=== PATIENT | female | born 1955 | race Caucasian/White ===

== ENCOUNTER → 2016-12-18 | Outpatient (CLI) | payer OTHER ==
[~2016-12-18] MED LIST: IOPAMIDOL (ISOVUE-300) 100 ML BTL IV ONE
--- NOTE | 2016-12-18 12:24 | MA ---
Screening Digital Mammogram With Tomosynthesis Clinical Indications: Routine screening. Technique: Standard digital cephalocaudal and tomosynthesis mediolateral oblique projections are obt ained. The digital images are processed by the [employer] computer aided detection system. Comparison: December 2015, November 2014, October 2013 and 2011 Breast density: C; The breast tissue is heterogeneously dense, which could obscure detection of small masses. Findings: CAD was reviewed. No suspicious findings are identified. Impression: Negative mammogram. BI-RADS 1. Recommendation: Routine screening is recommended in one year, as long as physical examination is kirill ign in this patient with moderately dense breast parenchyma. [facility] will send a result letter to the patient. Negative mammography should not preclude additional workup of a clinically suspicious finding. The patient's information is entered into a reminder system with a target due date for her next mammo gram.
== END ==
LOC: FIMAGING 10:56
DX: Z12.31 Encounter for screening mammogram for malignant neoplasm of breast (principal)
CPT/HCPCS: G0202; Q9967

== ENCOUNTER 2016-12-19 18:34 | Emergency (ER) | payer OTHER ==
[2016-12-19 18:43] VITALS: TEMP 97.7
[2016-12-19 19:56] LABS: % IMMATURE GRANULYOCYTES 0.4 % (0.0-1.1); ABSOLUTE IMMATURE GRANULOCYTES 0.03 10^3/uL (0.00-0.10); ADD DIFF? NO; ADD MORPH? NO; ADD SCAN? NO; ATYPICAL LYMPHOCYTE FLAG 10 (0-99); FRAGMENT RBC FLAG 0 (0-99); HEMATOCRIT 41.5 % (38.0-47.0); LEFT SHIFT FLG 0 (0-99); LIPEMIA HEMOLYSIS FLAG 80 (0-99); MEAN CELL HEMOGLOBIN 30.8 pg (27.9-34.1); MEAN CELL HEMOGLOBIN CONCENTR. 33.7 g/dL (32.4-36.7); MEAN CELL VOLUME 91.2 fL (81.5-99.8); MEAN PLATELET VOLUME 9.1 fL (8.7-11.7); PLATELET CLUMPS FLAG 10 (0-99); PLATELET COUNT 287 10^3/uL (150-400); RED BLOOD CELL COUNT 4.55 10^6/uL (4.18-5.33); RED CELL DISTRIBUTION WIDTH 12.4 % (11.5-15.2)
[2016-12-19 20:12] LABS: ALANINE AMINOTRANSFERASE 27 IU/L (9-52); ALBUMIN 3.6 g/dL (3.5-5.0); ALKALINE PHOSPHATASE 40 IU/L (38-126); ANION GAP 5 mEq/L (8-16); ASPARTATE AMINOTRANSFERASE 17 IU/L (14-46); BILIRUBIN,TOTAL 0.4 mg/dL (0.1-1.4); BILIRUBIN-CONJUGATED 0.2 mg/dL (0.0-0.5); BILIRUBIN-UNCONJUGATED 0.2 mg/dL (0.0-1.1); CARBON DIOXIDE 28 mEq/l (22-31); CHLORIDE 104 mEq/L (97-110); CREATININE 0.8 mg/dL (0.6-1.0); GLOMERULAR FILTRATION RATE > 60; GLUCOSE 79 mg/dL (70-100); SODIUM 137 mEq/L (134-144); TOTAL PROTEIN 6.9 g/dL (6.3-8.2)
--- NOTE | 2016-12-19 20:16 | EDPHY ---
H & P Time Seen by Provider: 12/19/16 19:30 HPI/ROS: CHIEF COMPLAINT: Abdominal pain HISTORY OF PRESENT ILLNESS: 61-year-old female presents to the emergency department by private vehicle complaining of right upper quadrant abdominal pain began 3 days ago. She feels that the pain is getting worse. She denies any known trauma or injury. She feels a constant dull ache but then will get waves of severe sharp pain. She does not have chest pain. She has no associated shortness of breath. Denies any URI symptoms. Denies back pain. Patient also has had cramping in her toes and in her fingers which has woken her up out of a sleep last few nights. She denies any known trauma or injury. She denies calf pain or swelling. No recent travel. Patient is concerned because she is traveling to [place] on Thursday, in 2 days. REVIEW OF SYSTEMS: Constitutional: No fever, no chills. Eyes: No double or blurry vision. ENT: No sore throat. Respiratory: No cough, no shortness of breath. Cardiac: No chest pain. Gastrointestinal: Abdominal pain as above. No vomiting or diarrhea. Genitourinary: No dysuria. Musculoskeletal: No neck or back pain. Skin: No rashes. Neurological: Chronic migraine headaches Past Medical/Surgical History: Chronic migraine headaches, tonsillectomy, tubal ligation Social History: and lives in [place] Smoking Status: Never smoked Physical Exam: General Appearance: Alert, no distress. Afebrile. No apparent distress. Eyes: Pupils equal and round. Extraocular motions are all intact. ENT: Mouth: Mucous membranes moist. Respiratory: No wheezing, rhonchi, or rales, lungs are clear to auscultation. Cardiovascular: Regular rate and rhythm. Gastrointestinal: Abdomen is soft. She has mild tenderness with palpation in the right upper quadrant. There is no rebound, guarding or masses noted. No CVA tenderness bilaterally. Neurological: Alert and oriented x 3, cranial nerves II through XII grossly intact Skin: Warm and dry, no rashes. Musculoskeletal: Nontender to palpate along the cervical, thoracic or lumbar spine. Neck is supple. Extremities: Full range of motion and no peripheral edema. Psychiatric: Patient is oriented X 3, there is no agitation. Constitutional: Initial Vital Signs Temperature (C) 36.5 C 12/19/16 18:39 Heart Rate 78 12/19/16 18:39 Respiratory Rate 18 12/19/16 18:39 Blood Pressure 124/83 H 12/19/16 18:39 O2 Sat (%) 95 12/19/16 18:39 O2 Delivery Mode Room Air Allergies/Adverse Reactions: sumatriptan [From Imitrex] Allergy (Verified 03/24/15 15:04) sumatriptan succinate [From Imitrex] Allergy (Verified 03/24/15 15:04) Home Medications: Medication Instructions Recorded Rizatriptan 12/19/16 Medical Decision Making - Diagnostics Imaging: CT imaging of the abdomen and pelvis was reported to me by Dr. Barrera. Gallbladder appears normal. There is an incidental 1.4 cm hypo dense lesion in the dome of the liver. The studies otherwise unremarkable. ED Course/Re-evaluation: 61-year-old female presents to the emergency department with intermittent right upper quadrant abdominal pain over last few days. Laboratory studies reveal normal CBC. Chemistries are within normal limits including normal LFTs and lipase. CT imaging of the abdomen and pelvis with IV contrast reveals normal- appearing gallbladder. There is a small hypodense lesion in the liver but is otherwise unremarkable. The case was discussed with Dr. Judah Vigil , secondary supervising physician who did not directly evaluate the patient but agrees with treatment and plan. He agrees to discharge the patient from the emergency department with close follow-up with her primary care provider. The patient is comfortable being discharged home. I encouraged her to return if she had any recurring abdominal pain, vomiting, if she developed fever, or if she seems worse in any way. Differential Diagnosis: Including but not limited to cholecystitis, cholelithiasis, peptic ulcer disease , GERD, pancreatitis, carcinoma, bowel obstruction, perforation - Data Points Laboratory Results: Laboratory Results 12/19/16 19:45 12/19/16 19:45 12/19/16 19:45 WBC 8.55 10^3/uL (3.80-9.50) RBC 4.55 10^6/uL (4.18-5.33) Hgb 14.0 g/dL (12.6-16.3) Hct 41.5 % (38.0-47.0) MCV 91.2 fL (81.5-99.8) MCH 30.8 pg (27.9-34.1) MCHC 33.7 g/dL (32.4-36.7) RDW 12.4 % (11.5-15.2) Plt Count 287 10^3/uL (150-400) MPV 9.1 fL (8.7-11.7) Neut % (Auto) 61.4 % (39.3-74.2) Lymph % (Auto) 28.5 % (15.0-45.0) [place] % (Auto) 6.8 % (4.5-13.0) Eos % (Auto) 2.1 % (0.6-7.6) Baso % (Auto) 0.8 % (0.3-1.7) Nucleat RBC Rel Count 0.0 % (0.0-0.2) Absolute Neuts (auto) 5.25 10^3/uL (1.70-6.50) Absolute Lymphs (auto) 2.44 10^3/uL (1.00-3.00) Absolute Monos (auto) 0.58 10^3/uL (0.30-0.80) Absolute Eos (auto) 0.18 10^3/uL (0.03-0.40) Absolute Basos (auto) 0.07 10^3/uL (0.02-0.10) Absolute Nucleated RBC 0.00 10^3/uL (0-0.01) Immature Gran % 0.4 % (0.0-1.1) Immature Gran # 0.03 10^3/uL (0.00-0.10) Sodium 137 mEq/L (134-144) Potassium 4.0 mEq/L (3.5-5.2) Chloride 104 mEq/L (97-110) Carbon Dioxide 28 mEq/l (22-31) Anion Gap 5 mEq/L (8-16) BUN 25 H mg/dL (7-23) Creatinine 0.8 mg/dL (0.6-1.0) Estimated GFR > 60 Glucose 79 mg/dL (70-100) Calcium 9.0 mg/dL (8.5-10.4) Total Bilirubin 0.4 mg/dL (0.1-1.4) Conjugated Bilirubin 0.2 mg/dL (0.0-0.5) Unconjugated Bilirubin 0.2 mg/dL (0.0-1.1) AST 17 IU/L (14-46) ALT 27 IU/L (9-52) Alkaline Phosphatase 40 IU/L (38-126) Total Protein 6.9 g/dL (6.3-8.2) Albumin 3.6 g/dL (3.5-5.0) Lipase 72.0 IU/L (23-300) Departure - Departure Disposition: Home, Routine, Self-Care Clinical Impression: Abdominal pain Qualifiers: Abdominal location: right upper quadrant Qualifier Code: (R10.11) Right upper quadrant pain Condition: Good Instructions: Acute Abdominal Pain (ED) Additional Instructions: Abdominal Pain: Return to the Emergency Department immediately for increasing pain, fever, vomiting, or if not completely better in 8-12 hours. The radiologist found an incidental lesion in her liver which is hypodense. She may follow up with primary care provider for further evaluation of this. Referrals: Leila Mcgovern MD [Primary Care Provider] - 1-2 days without fail
--- NOTE | 2016-12-19 21:36 | CT ---
CT Scan of the Abdomen and Pelvis (With Contrast) Clinical Indications: Right-sided abdominal pain. Technique: Dilute contrast was given orally prior to the scan. During the machine power injection o f 90 mL [id number]-300 intravenously, multidetector helical CT imaging was performed from the diaphragm t o the pubic symphysis. Coronal and parasagittal reformatted images are reviewed on the workstation. Dose reduction techniques were utilized. Comparison: No priors for comparison. Findings: Mild amount of atelectasis is present in the lung bases. There is a small hypodense lesio n at the dome of the right hepatic lobe, measuring 1.4 x 0.8 cm. Hounsfield unit measures upper 30s. It is nonspecific. The rest of the liver is normal. Cardiac base is normal. No discrete abnormalities are found in the gallbladder. No surrounding inflammation. The pancreas, adrenal glands, kidneys, spleen, and pancreas are within normal limits. There is a sma ll cyst at the superior pole of the left kidney. No hydronephrosis. No free air or free fluid. The re is a moderate amount of stool throughout the entire colon. Small bowel loops are normal. Pelvic structures are within normal limits. No compression deformity. No rib fractures. Tubal ligation clips are noted. Impressions 1. Moderate amount of stool. 2. Nonspecific hypodense lesion at the dome of the right hepatic lobe. Ultrasound can be performed for further evaluation, if clinically warranted. This could be done as an outpatient on an elective basis, as it is an incidental finding. 3. No acute process to explain right upper quadrant pain. Findings are discussed with Cate Ríos PA-C.
[2016-12-19 22:15] VITALS: BP 128/72; PULSE 86; RESP 16; O2SAT 95
== END 2016-12-19 22:14 | disposition home or self-care (01) ==
DX: R10.11 Right upper quadrant pain (principal)

== ENCOUNTER → 2017-07-15 | Outpatient (CLI) | payer OTHER | LOC: BMCIMAGING 14:56 | PROVIDERS: ATTEND Physician Assistant | DX: M25.562 Pain in left knee (principal) ==

== ENCOUNTER → 2017-12-21 | Outpatient (CLI) | payer OTHER | LOC: FIMAGING 14:37 | PROVIDERS: ATTEND Internal Medicine | DX: Z12.31 Encounter for screening mammogram for malignant neoplasm of breast (principal) ==

== ENCOUNTER → 2018-08-02 | Outpatient (CLI) | payer OTHER | LOC: FIMAGING 09:10 | PROVIDERS: ATTEND Physician Assistant Medical | DX: R14.0 Abdominal distension (gaseous) (principal); Z78.0 Asymptomatic menopausal state; Z90.710 Acquired absence of both cervix and uterus ==

== ENCOUNTER → 2018-12-02 | Outpatient (CLI) | payer OTHER | LOC: BMCIMAGING 08:50 | PROVIDERS: ATTEND Podiatrist Foot & Ankle Surgery | DX: M19.071 Primary osteoarthritis, right ankle and foot (principal); M19.072 Primary osteoarthritis, left ankle and foot ==

== ENCOUNTER → 2018-12-23 | Outpatient (CLI) | payer OTHER | LOC: FIMAGING 10:18 | PROVIDERS: ATTEND Internal Medicine | DX: Z12.31 Encounter for screening mammogram for malignant neoplasm of breast (principal); Z80.3 Family history of malignant neoplasm of breast ==